=== PATIENT | female | born 1980 | race Caucasian/White ===

== ENCOUNTER 2016-05-15 10:18 | Inpatient (IN) | payer OTHER ==
[2016-05-14 15:55] VITALS: Ht 165.1 cm; Wt 113.0 kg
[~2016-05-15] VITALS: Ht 165.1 cm; Wt 113.0 kg
[2016-05-15] VITALS (34 sets, daily range): BP systolic 98–150; BP diastolic 45–78; PULSE 70–96; RESP 13–32
[~2016-05-15 10:18] MED LIST: CEFAZOLIN 1 GM INJ ONE; CIPR500T4 PO; CYCL-319 PO; HYDR-3498 PO; HYDR-906 PO; LOSARTAN 100 MG PO; MAG-19 PO; OMEP20CA9 PO; ONDA4TAB35 PO
[2016-05-15] MEDS ORDERED: HYDROCO/APAP PO (11:13)
[2016-05-15 11:39] LABS: ADD UMIC YES; URINE BILIRUBIN (Dip) NEGATIVE (NEGATIVE); URINE BLOOD (Dip) NEGATIVE (NEGATIVE); URINE COLOR LT. YELLOW (YELLOW); URINE GLUCOSE (Dip) NEGATIVE (NEGATIVE); URINE KETONES (Dip) NEGATIVE (NEGATIVE); URINE LEUKOCYTE ESTERASE (Dip) 1+ (NEGATIVE); URINE NITRITE (Dip) NEGATIVE (NEGATIVE); URINE TOTAL PROTEIN (Dip) NEGATIVE (NEGATIVE); URINE UROBILINOGEN (Dip) 0.2 E.U./dL (0.1-1.0)
[2016-05-15 12:11] LABS: BACTERIA,URINE FEW; URINE RBCS NONE SEEN /HPF (0)
[2016-05-15] MEDS ORDERED: MIDAZOLAM 1 MG/ML 2 ML INJ ONE (12:20)
[2016-05-15] MEDS ORDERED: FENTAnyl 50 MCG/ML VIAL ONE (12:20)
[2016-05-15] MEDS ORDERED: SUCCINYLCHOLINE CHLORIDE 100 MG/5 ML SYG IV ONE (12:20)
[2016-05-15] MEDS ORDERED: LIDOCAINE 2% (SDV) 5 ML INJ ONE (12:20)
[2016-05-15] MEDS ORDERED: PROPOFOL 20 ML ONE ×2 (12:20→14:32)
[2016-05-15] MEDS ORDERED: THROMBIN 5000 UNIT VIAL ONE ×2 (12:23→13:03)
[2016-05-15] MEDS ORDERED: GELATIN SIZE 100 SPONGE ONE (12:23)
[2016-05-15] MEDS ORDERED: OCULAR LUBRICANT 3.5 GM OPH OINT ONE (12:23)
[2016-05-15] MEDS ORDERED: POLYMYXIN/BACITRACIN 1L IRRIG ONE (12:23)
[2016-05-15] MEDS ORDERED: LIDOCAINE 0.5%/EPI (MDV) 50 ML INJ ONE (12:23)
--- NOTE | 2016-05-15 13:05 | HPN ---
Date/Time of Note Date/Time of Note DATE: 05/15/16 TIME: 13:05 Interval H&P Admission Note Pt. seen H&P reviewed: No system changes OREN NELSON PA-C May 15, 2016 13:05
[2016-05-15] MEDS ORDERED: morphine 2 MG INJ IV PRN ×2 (13:30→16:30)
[2016-05-15] MEDS ORDERED: ONDANSETRON 4 MG INJ IV PRN ×2 (13:30→14:30)
[2016-05-15] MEDS ORDERED: HYDROCODONE/APAP (10/325) TAB PO PRN ×3 (13:30→21:50)
[2016-05-15] MEDS ORDERED: PHENYLephrine (100 MCG/ML) 5ML SYG ONE (13:36)
[2016-05-15] MEDS: CEFAZOLIN 1 GM/50 ML (PMX) 50 ML IVPB SCH ×2 (13:40→22:34)
[2016-05-15] MEDS ORDERED: DEXAMETHASONE 4 MG/ML 1 ML INJ ONE (13:47)
[2016-05-15] MEDS ORDERED: METOCLOPRAMIDE 10 MG INJ ONE (13:47)
[2016-05-15] MEDS ORDERED: ROCURONIUM 50 MG INJ ONE (13:49)
[2016-05-15] MEDS ORDERED: LABETALOL HCL 20MG INJ ONE (13:54)
[2016-05-15] MEDS ORDERED: HYDROmorphONE 2 MG/ML SYG ONE (13:55)
[2016-05-15] MEDS ORDERED: GELATIN SIZE 100 SPONGE TOP ONE (13:56)
[2016-05-15] MEDS ORDERED: EPHEDrine SULFATE 50 MG/5 ML SYG ONE (14:11)
[2016-05-15] MEDS ORDERED: METOCLOPRAMIDE 10 MG INJ IV PRN (14:30)
[2016-05-15] MEDS ORDERED: HYDROmorphONE (0.2 MG/ML) 10ML SYG IV PRN ×3 (14:30→17:00)
[2016-05-15] MEDS ORDERED: DIPHENHYDRAMINE 50 MG INJ IV PRN (14:30)
[2016-05-15] MEDS ORDERED: hydrALAzine 20 MG INJ IV PRN (14:30)
[2016-05-15] MEDS ORDERED: PROCHLORPERAZINE 10 MG INJ IV PRN (14:30)
[2016-05-15] MEDS ORDERED: MEPERIDINE 25 MG INJ IV PRN (14:30)
[2016-05-15] MEDS ORDERED: EPHEDrine SULFATE 50 MG/5 ML SYG IV PRN (14:30)
[2016-05-15] MEDS ORDERED: OXYCODONE/ACETAMINOPHEN (5/325) TAB PO PRN ×2 (14:30)
[2016-05-15] MEDS ORDERED: LABETALOL HCL 20MG INJ IV PRN (14:30)
[2016-05-15] MEDS ORDERED: ONDANSETRON 4 MG INJ ONE (14:49)
[2016-05-15] MEDS ORDERED: GLYCOPYRROLATE 1 MG INJ ONE (14:55)
[2016-05-15] MEDS ORDERED: NEOSTIGMINE 3 MG/3 ML SYRINGE ONE (14:55)
[2016-05-15] MEDS: FENTAnyl 50 MCG/ML VIAL IV PRN ×5 (15:41→16:14)
[2016-05-15] MEDS: HYDROmorphONE (0.2 MG/ML) 10ML SYG IV PRN ×5 (15:42→16:14)
--- NOTE | 2016-05-15 15:53 | RADRPT ---
PROCEDURE: X-ray fluoroscopy guidance CLINICAL INDICATION: Pain TECHNIQUE: Fluoroscopic guidance was utilized for lumbar laminectomy. COMPARISON: None available FINDINGS: Fluoroscopic guidance was provided. 6.2 seconds of fluoroscopy time was utilized for the procedure. Two images were obtained during the procedure in progress. IMPRESSION: 1. X-ray fluoroscopic guidance, as above. RPTAT: QQ .Johan Pelletier MD, MD Date Time Electronically viewed and signed by .Johan Pelletier MD, MD on 05/15/2016 15:53 .R/
[2016-05-15] MEDS ORDERED: HYDROmorphONE 0.2 MG/ML PCA ONE (16:40)
[2016-05-15] MEDS ORDERED: HYDROmorphONE 0.2 MG/ML PCA IV SCH ×2 (17:00→22:00)
--- NOTE | 2016-05-15 18:29 | HP ---
DATE OF ADMISSION: 05/15/2016 CHIEF COMPLAINT: Lower back and radicular pain. HISTORY OF PRESENT ILLNESS: The patient is a 35-year-old female with history of chronic lower back and radicular pain. The patient was seen by Dr. Ervin as an outpatient. The patient has history of multilevel disk herniation in her lumber spine, most notably at L5 to S1. The patient's MRI done in 01/2016 showed small left-sided disk herniation at T12 to L1, small central disk herniation at L 1 to L2, small central disk herniation at L4 to L5 and large left-sided disk herniation at L5 to S1. The patient failed conservative treatment and was brought in to hospital today and underwent lumba r laminectomy at L4 to S1. The patient also underwent microdiskectomy. The patient does have posto perative pain, but is able to move the lower extremities. No reported chest pain, shortness of sandra th. No recent fever or chills. No recent fall. The patient states that she used to use a cane int ermittently prior to admission. The patient reported that she has a history of hypertension and was taking losartan for hypertension and [place] for pain control. The patient denied any abdominal pain . REVIEW OF SYSTEMS: Rest of review of systems was unremarkable. PAST MEDICAL HISTORY: Significant for recent fracture left great toe with osteomyelitis and retaine d foreign body, status post left foot incision and drainage of great toe with biopsy of the bone. T he patient reported that she has taken 6 weeks of antibiotics. PAST SURGICAL HISTORY: As stated above, the patient is status post left great toe incision and drai nage and also status post left wrist surgery, details not available. SOCIAL HISTORY: No smoking, no alcohol. FAMILY HISTORY: Noncontributory. ALLERGIES: NONE. PHYSICAL EXAMINATION: GENERAL: The patient is conscious, awake, alert, fairly oriented. VITAL SIGNS: Temperature 98.1, pulse 78, respirations 15, blood pressure 116/61, O2 saturation 96% on 2 liters. HEENT: Conjunctivae and lids are normal. Oropharynx clear. NECK: Supple. No mass, no thyromegaly. LUNGS: Clear to auscultation. CARDIOVASCULAR: S1, S2 normal. No murmur. ABDOMEN: Soft, nondistended, nontender. Bowel sounds present. EXTREMITIES: No leg edema. NEUROLOGIC: The patient is awake, alert, fairly oriented, with no gross motor deficit. Detailed ex amination was deferred due to recent surgery. LABORATORY DATA: Sodium 141, potassium 4.1, BUN 9, creatinine 0.5. Liver enzymes normal. WBC 7.6, hemoglobin 13.7, platelets 329. Urine negative. Coagulation profile normal. EKG: Norm al sinus rhythm with no acute ST changes. Chest x-ray clear. IMPRESSION: 1. Chronic lower back pain and lumbar radiculopathy. 2. Hypertension. PLAN: The patient will be admitted on the medical floor. The patient has been started on IV fluid and will be continued on IV cefazolin as per protocol. The patient will be started on IV morphine f or pain control and also will be started on Percocet. The patient's antihypertensive medication tyler l be withheld as the last blood pressure was in high 90s and low 100s. The patient will have SCDs f or DVT prophylaxis. We will do followup labs. Further recommendations will depend on patient's hos pital course. Meanwhile, we will continue symptomatic treatment. Dictated By: SAI VEGA/ANGELINA Conf#: [id number] DID#: [id number]
[2016-05-15] MEDS: SOD CHLORIDE 0.45% 1,000 ML IV SCH (20:39)
[2016-05-15] MEDS: HYDROCODONE/APAP (10/325) TAB PO PRN (22:30)
[2016-05-16] VITALS: BP 105/55; RESP 18
[2016-05-16 05:01] LABS: ADD SCAN DIFF NO
[2016-05-16 05:17] LABS: POTASSIUM 4.4 mmol/L (3.5-5.1)
[2016-05-16 05:19] LABS: BASOPHILS % 0.2 % (0.0-2.0); HEMATOCRIT 34.9 % (37.0-47.0); HEMOGLOBIN 11.4 g/dl (12.0-16.0); LYMPHOCYTES # 1.9 10^3/ul (0.8-2.9); MEAN CORPUSCULAR HGB CONC 32.7 g/dl (32.0-37.0); MEAN CORPUSCULAR VOLUME 82.5 fl (82.0-101.0); MEAN PLATELET VOLUME 10.1 fl (7.4-10.4); MONOCYTE # 1.1 10^3/ul (0.3-0.9); MONOCYTES % 7.6 % (0.0-11.0); NEUTROPHIL # 11.6 10^3/ul (1.6-7.5); NEUTROPHILS % 78.7 % (39.0-77.0); PLATELET COUNT 293 10^3/UL (140-415); RED BLOOD COUNT 4.23 10^6/ul (4.20-5.40); RED CELL DISTRIBUTION WIDTH 13.6 % (11.5-14.5); WHITE BLOOD COUNT 14.8 10^3/ul (4.8-10.8)
[2016-05-16 05:20] LABS: CALCIUM 8.3 mg/dl (8.4-10.2); CREATININE 0.59 mg/dl (0.44-1.00)
[2016-05-16] MEDS: CEFAZOLIN 1 GM/50 ML (PMX) 50 ML IVPB SCH ×2 (06:14→13:45)
[2016-05-16] MEDS: SOD CHLORIDE 0.45% 1,000 ML IV SCH ×2 (06:50→08:33)
--- NOTE | 2016-05-16 07:00 | PREOPHP ---
DATE OF ADMISSION: 05/15/2016 HISTORY OF PRESENT ILLNESS: The patient is approximately 35 years of age, a female who was original ly seen in the office for evaluation of low back pain with pain radiating down to the lower extremit y and weakness in her left foot. The patient was diagnosed with lumbar 4, lumbar 5 disk herniation and lumbar 5-S1 large left-sided disk herniation. Conservative management was offered to the patien t. The patient has had epidural injections in the lumbar spine without much relief. Has had physic al therapy without much relief and she has failed pain management. Her condition is getting worse. Pain is increasing. She wants something more definitive to be done. Surgical intervention was dis cussed with the patient. The patient has agreed to entertain this option. PAST MEDICAL HISTORY: Per chart. SURGICAL HISTORY: Per chart. SOCIAL HISTORY: Denies use of drugs, alcohol, tobacco. ALLERGIES: PER CHART. MEDICATIONS: Taking at home, per chart. FAMILY HISTORY: Unremarkable. REVIEW OF SYSTEMS: Additional 10-point review of systems conducted. Pertinent positives stated in HPI, otherwise negative. PHYSICAL EXAMINATION: GENERAL: The patient is awake, alert and oriented, follows commands properly. EXTREMITIES: The upper extremity examination is unremarkable. She has equal strength in both her u pper extremities shoulders, biceps, triceps, wrist extensors and flexors. Sensation is intact throughout. Lower extremity examination: Positive leg raise on the left side, 4/5 muscle strength on the left leg compared to 5/5 muscle strength on the right leg. She is able to move the right le g freely as well as hip, knee and ankle, has good strength throughout without any sensory loss. On the left side, patient has difficulty with range of motion. IMAGING: MRI dated 2016 showed small central disk herniation L1-L2, with small disk herniatio n L4-L5 and a large left side disk herniation L5-S1. RECOMMENDATIONS: Unfortunately, patient has failed conservative management, has failed outpatient management. The pa rory's condition is getting worse. At this point, the only option left is for surgical decompressi on in the form of right L4-L5 and left L5-S1 laminotomy with foraminotomy and possible diskectomy. The procedure was described to the patient in great detail. All questions were answered. Complicat ions of surgery were reviewed with the patient including bleeding, infection, permanent neurological damage, , stroke and heart attack. The patient has agreed and has had preop performed, has be en cleared for surgical intervention. Will be admitted to [facility] surger y for further care and management. The patient was seen and examined, discussed with Dr. Ervin. Dictated By: OREN DAVIS for JUANCARLOS WHATLEY/ANGELINA Conf#: [id number] DID#: [id number]
[2016-05-16 08:28] VITALS: BP 108/59; RESP 18
[2016-05-16] MEDS: HYDROCODONE/APAP (10/325) TAB PO PRN ×4 (08:34→23:39)
--- NOTE | 2016-05-16 11:46 | PN ---
Date/Time of Note Date/Time of Note DATE: 05/16/16 TIME: 11:43 Assessment/Plan VTE Prophylaxis VTE Prophylaxis Intervention: SCD's Lines/Catheters IV Catheter Type (from Nrsg): Peripheral IV Urinary Cath still in place: Yes Reason Cath still needed: urinary retention Assessment/Plan Assessment/Plan 1. Chronic lower back pain and lumbar radiculopathy. S/p right l3-4,left l5-s1 laminotomy/foraminotomy by Dr Gibbs. Continue MAGAZINE WRITER Dilaudid and Lutts for pain. Continue PT. 2. Hypertension. BP is stable. Hydralazine PRN. 3. Obesity. Weight loss advised. D/W RN. Plan of care d/w Dr Franco. Subjective 24 Hr Interval Summary Free Text/Dictation Patient with significant back pain, pain is better controlled with MAGAZINE WRITER Dilaudid and Lutts, was able to ambulate, tolerates diet well, no N/V. Exam/Review of Systems Vital Signs Vitals Vital Signs Date Time Temp Pulse Resp B/P Pulse Ox O2 Delivery O2 Flow Rate FiO2 05/16/16 08:28 98.9 75 18 108/59 97 05/15/16 22:00 Nasal Cannula 2.0 Intake and Output 05/15/16 05/15/16 05/16/16 14:59 22:59 06:59 Intake Total 1300 ml 1420 ml Output Total 145 ml 1500 ml Balance 1155 ml -80 ml Exam Constitutional: alert, oriented Psych: no complaints Head: normocephalic Eyes: nl conjunctiva ENMT: nl external ears & nose Neck: non-tender, supple Respiratory: clear to auscultation, normal air movement Cardiovascular: nl pulses, regular rate and rhythm Gastrointestinal: soft Musculoskeletal: other (s/p back surgery with D,c,i dressing) Extremities: normal pulses Neurological: BEHAVIORAL ANALYST II-XII intact Skin: nl turgor Results Result Diagram: 05/16/16 04305/16/16 0430 Results 24 hrs Laboratory Tests Test 05/16/16 04:30 Anion Gap 15 Basophils # 0.0 Basophils % 0.2 Blood Urea Nitrogen 7 Calcium Level 8.3 L Carbon Dioxide Level 22 Chloride Level 105 Creatinine 0.59 Eosinophils # 0.0 Eosinophils % 0.0 Glucose Level 125 Hematocrit 34.9 L Hemoglobin 11.4 L Lymphocytes # 1.9 Lymphocytes % 13.0 L Mean Corpuscular Hemoglobin 27.0 L Mean Corpuscular Hemoglobin Concent 32.7 Mean Corpuscular Volume 82.5 Mean Platelet Volume 10.1 Monocytes # 1.1 H Monocytes % 7.6 Neutrophils # 11.6 H Neutrophils % 78.7 H Nucleated Red Blood Cells # 0.0 Nucleated Red Blood Cells % 0.0 Platelet Count 293 Potassium Level 4.4 Red Blood Count 4.23 Red Cell Distribution Width 13.6 Sodium Level 138 White Blood Count 14.8 #H Medications Medications Current Medications Cefazolin Sodium (Ancef 1 Gm/50 ml (Pmx)) 50 ml @ 100 mls/hr Q8 IVPB Last administered on 05/16/16 06:14; Admin Dose 100 MLS/HR; Start 05/15/16 at 14:00; Stop 05/16/16 at 14:00 Morphine Sulfate (morphine) 1 mg Q2H PRN IV mod to severe pain; Start 05/15/16 at 13:30; Status Future Hold Ondansetron HCl (Zofran Inj) 4 mg Q4H PRN IV NAUSEA AND/OR VOMITING; Start 05/15 at 13:30; Status Future Hold Morphine Sulfate 2 mg 2 mg Q4H PRN IV SEVERE PAIN LEVEL 7-10; Start 05/15/16 at 16:30 Sodium Chloride (1/2 NS) 1,000 ml @ 75 mls/hr [id number] IV Last administered on 05/16/16 08:33; Admin Dose 75 MLS/HR; Start 05/15/16 at 17:30 Acetaminophen/ Hydrocodone Bitart ([place] (10/325)) 2 tab Q4H PRN PO PAIN Last administered on 05/16/16 08:34; Admin Dose 2 TAB; Start 05/15/16 at 21:45 Acetaminophen/ Hydrocodone Bitart ([place] (10/325)) 1 tab Q4H PRN PO PAIN; Start 05/15/16 at 21:50 Hydromorphone HCl (Dilaudid MAGAZINE WRITER) 0.2 MG DOSE 10 ... Q4PCA IV Last administered on 05/16/16 00:15; Admin Dose 6 MG; Start 05/15/16 at 22:00 Influenza Virus Vaccine (Fluzone) 0.5 ml ONCE ONCE IM* ; Start 05/17/16 at 09:00 ; Stop 05/17/16 at 09:01 WOLF KINGSTON May 16, 2016 11:46
--- NOTE | 2016-05-16 15:07 | CONS ---
Date/Time of Note Date/Time of Note DATE: 05/16/16 TIME: 15:05 Assessment/Plan Assessment/Plan Additional Assessment/Plan seen/examined awake/alert/follows commands/sensation intact right l3-4,left l5-s1 laminotomy/foraminotomy wound looks good pt doing better cont pt/ot may go home gloria Consultation Date/Type/Reason Admit Date/Time May 15, 2016 at 10:18 Initial Consult Date Exam/Review of Systems Vital Signs Vitals Vital Signs Date Time Temp Pulse Resp B/P Pulse Ox O2 Delivery O2 Flow Rate FiO2 05/16/16 08:28 98.9 75 18 108/59 97 05/15/16 22:00 Nasal Cannula 2.0 Intake and Output 05/15/16 05/15/16 05/16/16 15:00 23:00 07:00 Intake Total 1300 ml 1420 ml Output Total 145 ml 1500 ml Balance 1155 ml -80 ml Results Result Diagram: 05/16/16 0430 05/16/16 0430 Results 24 hrs Laboratory Tests Test 05/16/16 04:30 Anion Gap 15 Basophils # 0.0 Basophils % 0.2 Blood Urea Nitrogen 7 Calcium Level 8.3 L Carbon Dioxide Level 22 Chloride Level 105 Creatinine 0.59 Eosinophils # 0.0 Eosinophils % 0.0 Glucose Level 125 Hematocrit 34.9 L Hemoglobin 11.4 L Lymphocytes # 1.9 Lymphocytes % 13.0 L Mean Corpuscular Hemoglobin 27.0 L Mean Corpuscular Hemoglobin Concent 32.7 Mean Corpuscular Volume 82.5 Mean Platelet Volume 10.1 Monocytes # 1.1 H Monocytes % 7.6 Neutrophils # 11.6 H Neutrophils % 78.7 H Nucleated Red Blood Cells # 0.0 Nucleated Red Blood Cells % 0.0 Platelet Count 293 Potassium Level 4.4 Red Blood Count 4.23 Red Cell Distribution Width 13.6 Sodium Level 138 White Blood Count 14.8 #H Medications Medications Current Medications Morphine Sulfate (morphine) 1 mg Q2H PRN IV mod to severe pain; Start 05/15/16 at 13:30; Status Future Hold Ondansetron HCl (Zofran Inj) 4 mg Q4H PRN IV NAUSEA AND/OR VOMITING; Start 05/15 at 13:30; Status Future Hold Morphine Sulfate 2 mg 2 mg Q4H PRN IV SEVERE PAIN LEVEL 7-10; Start 05/15/16 at 16:30 Sodium Chloride (1/2 NS) 1,000 ml @ 75 mls/hr [id number] IV Last administered on 05/16/16 08:33; Admin Dose 75 MLS/HR; Start 05/15/16 at 17:30 Acetaminophen/ Hydrocodone Bitart ([place] (10/325)) 2 tab Q4H PRN PO PAIN Last administered on 05/16/16 13:45; Admin Dose 2 TAB; Start 05/15/16 at 21:45 Acetaminophen/ Hydrocodone Bitart ([place] (10/325)) 1 tab Q4H PRN PO PAIN; Start 05/15/16 at 21:50 Hydromorphone HCl (Dilaudid CNC MACHINE SETTER) 0.2 MG DOSE 10 ... Q4PCA IV Last administered on 05/16/16 00:15; Admin Dose 6 MG; Start 05/15/16 at 22:00 Influenza Virus Vaccine (Fluzone) 0.5 ml ONCE ONCE IM* ; Start 05/17/16 at 09:00 ; Stop 05/17/16 at 09:01 OREN NELSON PA-C May 16, 2016 15:07
[2016-05-16 19:00] VITALS: BP 107/57; RESP 18
[2016-05-17 05:31] LABS: ADD SCAN DIFF NO; BASOPHIL # 0.1 10^3/ul (0.0-0.1); BASOPHILS % 0.4 % (0.0-2.0); EOSINOPHILS # 0.1 10^3/ul (0.0-0.5); EOSINOPHILS % 0.5 % (0.0-7.0); HEMOGLOBIN 11.1 g/dl (12.0-16.0); LYMPHOCYTES # 4.5 10^3/ul (0.8-2.9); LYMPHOCYTES % 33.3 % (15.0-51.0); MEAN CORPUSCULAR HEMOGLOBIN 27.3 pg (29.0-33.0); MEAN CORPUSCULAR HGB CONC 32.6 g/dl (32.0-37.0); MEAN CORPUSCULAR VOLUME 83.5 fl (82.0-101.0); MEAN PLATELET VOLUME 10.3 fl (7.4-10.4); MONOCYTE # 1.2 10^3/ul (0.3-0.9); MONOCYTES % 8.6 % (0.0-11.0); NEUTROPHIL # 7.6 10^3/ul (1.6-7.5); NEUTROPHILS % 56.7 % (39.0-77.0); PLATELET COUNT 253 10^3/UL (140-415); RED BLOOD COUNT 4.07 10^6/ul (4.20-5.40); RED CELL DISTRIBUTION WIDTH 14.4 % (11.5-14.5); WHITE BLOOD COUNT 13.4 10^3/ul (4.8-10.8)
[2016-05-17] MEDS: HYDROCODONE/APAP (10/325) TAB PO PRN (05:50)
[2016-05-17 06:03] LABS: POTASSIUM 3.9 mmol/L (3.5-5.1)
[2016-05-17 06:07] LABS: CALCIUM 7.9 mg/dl (8.4-10.2)
[2016-05-17 06:16] LABS: CREATININE 0.55 mg/dl (0.44-1.00)
[2016-05-17 07:34] VITALS: BP 146/85; RESP 17
[2016-05-17] MEDS ORDERED: INFLUENZA VIRUS VACCINE 0.5 ML (DISPENSING) IM* ONE (09:00)
--- NOTE | 2016-05-17 14:08 | DS ---
Date/Time of Note Date/Time of Note DATE: 05/17/16 TIME: 14:08 Discharge Summary Admission/Discharge Info Admit Date/Time May 15, 2016 at 10:18 Discharge Date/Time Patient Condition: Stable Home Meds Reported Medications [Hydroco/Apap] No Conflict Check, 1 TAB PO QID Y for PAIN, #40 05/15/16 [Lozartan 100 Mg] No Conflict Check, 50 MG PO DAILY 02/26/13 Discontinued Scripts Magaldrate/Simethicone* (Mylanta*) 355 Ml Susp, 30 ML PO QID Y for GASTROINTESTINAL UPSET, #1 BOTTLE Prov:SUKHDEV HOLLIDAY NP 10/28/15 Omeprazole* (Prilosec*) 20 Mg Capsule.dr, 20 MG PO DAILY, #30 CAP Prov:SUKHDEV HOLLIDAY NP 10/28/15 Ondansetron Hcl* (Zofran* ODT) 4 mg -ODT Tab.disper, 4 MG PO Q8 Y for NAUSEA AND /OR VOMITING, #30 TAB Prov:SUKHDEV HOLLIDAY NP 10/28/15 Ciprofloxacin Hcl* (Ciprofloxacin Hcl*) 500 Mg Tablet, 500 MG PO BID for 10 Days , TAB Prov:SUKHDEV HOLLIDAY NP 10/28/15 Hydrocodone Bit-Acetaminophen* ([place]*) 5-325 Mg Tab, 1 TAB PO Q6 Y for PAIN, # 20 TAB Prov:SUKHDEV HOLLIDAY NP 10/28/15 Cyclobenzaprine Hcl* (Cyclobenzaprine Hcl*) 10 Mg Tablet, 10 MG PO TID, #15 TAB Prov:MICAH RIVAS I. LGSW 04/17/15 Hydrocodone Bit-Acetaminophen ([place]) 5-325 Mg Tablet, 1 TAB PO Q4H Y for PAIN for 14 Days, TAB Prov:MICAH RIVAS I. LGSW 04/17/15 Hydrocodone Bit-Acetaminophen* ([place]*) 5-325 Mg Tab, 1 TAB PO Q6 Y for PAIN, # 20 TAB Prov:ALEKSEY OLIVAREZ 11/26/14 Pending Labs Laboratory Tests Test 05/17/16 04:30 Anion Gap 13 (8-16) Basophils # 0.110^3/ul (0.0-0.1) Basophils % 0.4% (0.0-2.0) Blood Urea Nitrogen 8mg/dl (7-20) Calcium Level 7.9mg/dl (8.4-10.2) Carbon Dioxide Level 24mmol/L (21-31) Chloride Level 107mmol/L (97-110) Creatinine 0.55mg/dl (0.44-1.00) Eosinophils # 0.110^3/ul (0.0-0.5) Eosinophils % 0.5% (0.0-7.0) Glucose Level 86mg/dl (70-220) Hematocrit 34.0% (37.0-47.0) Hemoglobin 11.1g/dl (12.0-16.0) Lymphocytes # 4.510^3/ul (0.8-2.9) Lymphocytes % 33.3% (15.0-51.0) Mean Corpuscular Hemoglobin 27.3pg (29.0-33.0) Mean Corpuscular Hemoglobin Concent 32.6g/dl (32.0-37.0) Mean Corpuscular Volume 83.5fl (82.0-101.0) Mean Platelet Volume 10.3fl (7.4-10.4) Monocytes # 1.210^3/ul (0.3-0.9) Monocytes % 8.6% (0.0-11.0) Neutrophils # 7.610^3/ul (1.6-7.5) Neutrophils % 56.7% (39.0-77.0) Nucleated Red Blood Cells # 0.010^3/ul (0.0-0.0) Nucleated Red Blood Cells % 0.0/100WBC (0.0-0.0) Platelet Count 00566^3/UL (140-415) Potassium Level 3.9mmol/L (3.5-5.1) Red Blood Count 4.0710^6/ul (4.20-5.40) Red Cell Distribution Width 14.4% (11.5-14.5) Sodium Level 140mmol/L (135-144) White Blood Count 13.410^3/ul (4.8-10.8) NICOL CARTWRIGHT May 17, 2016 14:08
--- NOTE | 2016-05-20 21:53 | OPR ---
DATE OF OPERATION: 05/15/2016 PREOPERATIVE DIAGNOSIS: Left-sided L4-L5 neural foraminal stenosis and right-sided L5-S1 neural for aminal stenosis, possible disk herniation. POSTOPERATIVE DIAGNOSIS: Left-sided L4-L5 neural foraminal stenosis and right-sided L5-S1 neural fo raminal stenosis, possible disk herniation. PROCEDURE: 1. Left-sided L4-L5 laminotomy, foraminotomy, medial facetectomy with microdiskectomy, CPT 54652. 3. Right-sided L5-S1 laminotomy, foraminotomy, medial facetectomy with microdiskectomy, CPT 77679. SURGEON FOR THE OPERATION: Juancarlos Ervin MD LINUX NETWORK ENGINEER: SUSAN Roblero COMPLICATIONS OF OPERATION: None. ANESTHESIA: General endotracheal. STIMATED BLOOD LOSS: Less than 200 COUNTS: Needle counts, sponge counts were correct. SPECIMENS: Multiple fragments of disk and also lamina and also facet joints were sent to pathology. INDICATIONS FOR OPERATION: Please refer to my consultation and admission H and P. The patient is a pproximately 35, has been complaining of low back pain, leg pain, radiation of pain to bilateral low er extremities. The patient has a right-sided L5-S1 on left-sided L4-L5 disk bulge. Will proceed w ith lumbar laminotomy, foraminotomy, medial facetectomy and microdiskectomy. Risks and benefits of the operation including anesthesia, infection, bleeding, permanent neurological injury and wer e explained. The patient agreed to proceed with operation and signed the consent. PROCEDURE IN DETAIL: The patient was placed on operating table. Once adequate general endotracheal anesthesia was obtained, the patient was turned prone on vertical bolsters. The lumbar region was shaved, prepped and draped in normal sterile fashion. Midline incision was made after an x-ray conf irmed our position. At the right side, the L4-L5 laminotomy and at left side L5-S1 laminotomy were performed under operative microscope magnification. On the right side, the nerve root of L4-L5 was completely skeletonized and followed distally into neural foramen. On the left side, the nerve root of L5-S1 was completely skeletonized, distally followed into neural foramen. There were disk bulge s at each level, and they were minimal and they were subligamentous disk. Microdiskectomy was done with just removal of the extra portion that was compressing the nerve root, but the significant prob marky was the facet hypertrophy and the severe lateral recess stenosis that was causing neural foramin al stenosis and radiculopathy. This was addressed with laminotomy. Spinal monitoring showed improv ement of signal. The area was irrigated with bacitracin/saline solution. The closure of the wound was done with #1 Vicryl for lumbodorsal fascia after washed and irrigated with bacitracin/saline josé ution. The subcutaneous tissue and dermis were closed with 2-0 and 3-0 Vicryl with Steri-Strips. T he wound was closed shut. The patient tolerated the procedure well, was taken to postanesthesia rec overy in stable condition, following commands, moving all muscle groups of the upper and lower extre mities. Dictated By: JUANCARLOS WOOD/ANGELINA Conf#: [id number] DID#: [id number]
== END 2016-05-17 13:45 | disposition home or self-care (01) | DRG 520 ==
LOC: REC 10:18 → MS1 19:05
PROVIDERS: ADMIT Neurological Surgery; ATTEND Neurological Surgery
PROC: 0SB20ZZ Excision of Lumbar Vertebral Disc, Open Approach (ICD-10-PCS; 2016-05-15)
PROC: 0SB40ZZ Excision of Lumbosacral Disc, Open Approach (ICD-10-PCS; 2016-05-15)
PROC: 01NB0ZZ Release Lumbar Nerve, Open Approach (ICD-10-PCS; principal; 2016-05-15 12:30)
DX: M48.06 Spinal stenosis, lumbar region (principal); I10 Essential (primary) hypertension; M54.16 Radiculopathy, lumbar region; M54.17 Radiculopathy, lumbosacral region; M51.86 Other intervertebral disc disorders, lumbar region; M51.87 Other intervertebral disc disorders, lumbosacral region
CPT/HCPCS: 72100; 80048; 81001; 81003; 84703; 85025; 86850; 86900; 86901; 87086; 90686; 97116; 97162; 97166; 97530; J0330; J0690; J1100; J1170; J2175; J2250; J2370; J2405; J2710; J2765; J3010

== ENCOUNTER 2016-06-06 23:21 | Emergency (ER) | payer OTHER ==
[~2016-06-06] VITALS: Ht 165.1 cm; Wt 113.2 kg
[~2016-06-06 23:21] MED LIST changes: -CEFAZOLIN 1 GM INJ ONE; -CIPR500T4 PO; -CYCL-319 PO; -HYDR-3498 PO; -HYDR-906 PO; +HYDROCO/APAP PO; -MAG-19 PO; -OMEP20CA9 PO; -ONDA4TAB35 PO
[2016-06-06 23:46] VITALS: Ht 165.1 cm; Wt 113.2 kg
--- NOTE | 2016-06-07 01:27 | ERA ---
ER Documentation Chief Complaint Date/Time DATE: 06/07/16 TIME: 01:26 Chief Complaint back pain HPI The patient is a 35-year-old female, presenting with back pain, worsening with cough. She has history of chronic back pain for more than 3 years, had back surgery about 3 weeks ago. She however does not take any pain medication for the last 3 days. She complains of cough today, a coughing spell made her back pain worse. She denies fever, chills, neck pain, chest pain, dyspnea, abdominal pain. He vomited some mucus, denies diarrhea, constipation, dysuria, polyuria. She does not smoke or drink, denies history of IV drug abuse Past medical history: Hypertension, polycystic ovarian syndrome Past surgical history: Back, left wrist ROS All systems reviewed and are negative except as per history of present illness. Medications Home Meds Active Scripts Hydrocodone/Acetaminophen ([place] 5-325 Tablet) 1 Each Tablet, 1 EACH PO Q6H, # 10 TAB Prov:HOLLY TREJO MD 06/07/16 Promethazine HCl/Codeine (Prometh-Codein 6.25-10 mg/5 ml) 5 Ml Syrup, 10 ML PO Q6, #120 Prov:HOLLY TREJO MD 06/07/16 Ondansetron (Ondansetron Odt) 4 Mg Tab.rapdis, 4 MG PO Q6H Y for NAUSEA AND/OR VOMITING, #10 TAB Prov:HOLLY TREJO MD 06/07/16 Hydrocodone/Acetaminophen ([place] 10-325 Tablet) 1 Each Tablet, 1 TAB PO Q6H Y for PAIN, #7 TAB Prov:HOLLY TREJO MD 06/07/16 Reported Medications [Hydroco/Apap] 10/325 No Conflict Check, 1 TAB PO QID Y for PAIN, #40 05/15/16 [Lozartan 100 Mg] No Conflict Check, 50 MG PO DAILY 02/26/13 Allergies Allergies: Coded Allergies: No Known Allergy (Unverified , 05/15/16) PMhx/Soc History of Surgery: Yes (RT WRIST SURGERY,LT BIG TOE SURGERY) Anesthesia Reaction: No Hx Neurological Disorder: No Hx Respiratory Disorders: No Hx Cardiac Disorders: Yes (HTN) Hx Psychiatric Problems: No Hx Miscellaneous Medical Probl: Yes (independent with gait and ADL's) Hx Alcohol Use: No Hx Substance Use: No Hx Tobacco Use: No Physical Exam Vitals Vital Signs Date Time Temp Pulse Resp B/P Pulse Ox O2 Delivery O2 Flow Rate FiO2 06/06/16 23:46 99.5 117 24 139/90 97 Physical Exam Const: No acute distress. Head: Atraumatic. Eyes: Normal Conjunctiva. ENT: Normal External Ears, Nose and Mouth. Neck: Full range of motion. No meningismus. Resp: Clear to auscultation bilaterally. Cardio: Regular rate and rhythm, no murmurs. Abd: Soft, non distended, normal bowel sounds, non tender. Skin: No petechiae or rashes. Back: No midline or flank tenderness. The back incision is healing well , not warm to touch, no crepitus Ext: No cyanosis, or edema. Neur: Awake and alert. No focal deficit Psych: Normal Mood and Affect. Result Diagram: 06/07/16 0146 06/07/16 0146 Results 24 hrs Laboratory Tests Test 06/07/16 01:46 06/07/16 02:17 Alanine Aminotransferase (ALT/SGPT) 25IU/L Albumin 4.4g/dl Albumin/Globulin Ratio 1.29 Alkaline Phosphatase 99IU/L Anion Gap 21 Aspartate Amino Transf (AST/SGOT) 19IU/L Basophils # 0.110^3/ul Basophils % 0.8% Blood Urea Nitrogen 7mg/dl Calcium Level 9.5mg/dl Carbon Dioxide Level 24mmol/L Chloride Level 108mmol/L Creatinine 0.58mg/dl Direct Bilirubin 0.00mg/dl Eosinophils # 0.110^3/ul Eosinophils % 1.1% Globulin 3.40g/dl Glucose Level 126mg/dl Hematocrit 42.0% Hemoglobin 13.9g/dl Indirect Bilirubin 0.0mg/dl Lipase 109U/L Lymphocytes # 3.710^3/ul Lymphocytes % 34.6% Mean Corpuscular Hemoglobin 27.3pg Mean Corpuscular Hemoglobin Concent 33.1g/dl Mean Corpuscular Volume 82.4fl Mean Platelet Volume 10.2fl Monocytes # 0.810^3/ul Monocytes % 7.5% Neutrophils # 6.010^3/ul Neutrophils % 55.6% Nucleated Red Blood Cells # 0.010^3/ul Nucleated Red Blood Cells % 0.0/100WBC Platelet Count 78980^3/UL Potassium Level 3.6mmol/L Red Blood Count 5.1010^6/ul Red Cell Distribution Width 13.5% Sodium Level 149mmol/L Total Bilirubin 0.0mg/dl Total Protein 7.8g/dl White Blood Count 10.810^3/ul Bedside Urine Blood Negative Bedside Urine Glucose (UA) Negative Bedside Urine Ketones (LAB) Negative Bedside Urine Leukocyte Esterase (L Trace Bedside Urine Nitrite (LAB) Negative Bedside Urine Protein (LAB) Negative Bedside Urine pH (LAB) 6.0 Current Medications Medications (Trade) Dose Ordered Sig/Ruddy Route PRN Reason Start Time Stop Time Status Last Admin Dose Admin Morphine Sulfate (morphine) 4 mg ONCE STAT IV 06/07/16 01:33 06/07/16 01:35 DC 06/07/16 01:44 Ondansetron HCl (Zofran Inj) 4 mg ONCE STAT IV 06/07/16 01:33 06/07/16 01:35 DC 06/07/16 01:44 Ondansetron HCl (Zofran Inj) 4 mg ONCE STAT IV 06/07/16 03:28 06/07/16 03:29 DC 06/07/16 03:30 Procedures/[place] [id number] Radiology Main Line: [phone] DIAGNOSTIC IMAGING REPORT Patient: BETINA ADAME : 1980 Age: 35 Sex: F MR #: [id number] DOS: 06/07/16 0133 Ordering MD: HOLLY TREJO MD Location: E/R Room/Bed: PROCEDURE: CT L-Spine. CLINICAL INDICATION: pain TECHNIQUE: Section spiral CT images through the lumbar spine without contrast. Multiplanar reconstructions. .The CTDIvol is 38.49 mGy and the DLP is 1011.04 mGycm. One or more of the following dose reduction techniques were used: automated exposure control, adjustment of the mA and/or kV according to patient size, or use of iterative reconstruction technique. COMPARISON: MRI from [address] the abdomen pelvis from 10/28/2015 FINDINGS: There is minimal retrolisthesis from L1-2 through L3-4. Alignment otherwise anatomic. No fracture is seen. There are mild degenerative changes of the lumbar spine. CT is less sensitive than MRI for disk pathology but findings are not definitely change compared with prior MRI. Posterior osteophytes and ligamentous calcification at T12-L1 and L1-2 is again seen and contributes to slight canal narrowing. Ligamentous calcification is also present posteriorly. Slight bilateral foraminal narrowing. At L4-5 and L5-S1, again seen are posterior osteophytes with small associated disk bulges. Large cyst exophytic off the right kidney is again seen. Partially imaged is a probable 3.2 cm left ovarian cyst. Colonic diverticulosis. IMPRESSION: Probable stable degenerative changes. No definite acute abnormality. Follow- up MRI could be obtained for more detailed evaluation of disk pathology if desired. RPTAT: HLBE Chasity Munoz, Physician Date Time Electronically viewed and signed by Chasity Munoz Physician on 06/07/2016 03 :40 LE/ CC: HOLLY TREJO MD [place] [id number] Radiology Main Line: [phone] DIAGNOSTIC IMAGING REPORT Patient: BETINA ADAME : 1980 Age: 35 Sex: F MR #: [id number] DOS: 06/07/16 0133 Ordering MD: HOLLY TREJO MD Location: E/R Room/Bed: PROCEDURE: XR Chest. CLINICAL INDICATION: Abdominal pain. TECHNIQUE: Single frontal view of the chest was obtained COMPARISON: None FINDINGS: Portable technique and patient body habitus accentuate the cardiac silhouette and lung markings. Heart size is upper limits of normal. Lungs are clear. There is no pleural effusion or pneumothorax. IMPRESSION: Mild cardiomegaly and pulmonary vascular congestion. RPTAT: UU R Stecher, Physician Date Time Electronically viewed and signed by Leonardo Hernandez Physician on 06/07/2016 02:43 RS/ CC: HOLLY TREJO MD MEDICAL MAKING DECISION: The patient is a 35-year-old female, presenting with acute postoperative pain, cough. She was treated with morphine 4 mg IV for pain, Zofran 4 mg IV 2 for nausea with good response. The differential diagnoses considered include but are not limited to cellulitis, abscess, discitis, musculoskeletal pain, osteomyelitis Departure Diagnosis: Primary Impression: Postoperative pain Additional Impression: Cough Condition: Good Comments She was discharged with Clyo, Zofran, Phenergan with codeine I discussed the findings with the patient. I advised the patient to follow-up with the primary physician in about 1-2 days, sooner if needed and return if any concern. HOLLY TREJO MD Jun 07, 2016 01:27
[2016-06-07] MEDS ORDERED: ONDANSETRON 4 MG INJ IV STA ×2 (01:33→03:28)
[2016-06-07] MEDS ORDERED: morphine 4 MG/ML VIAL IV STA (01:33)
[2016-06-07 02:16] LABS: URINE BLOOD (Dip) POC Negative (NEGATIVE)
[2016-06-07 02:42] LABS: ADD SCAN DIFF NO
--- NOTE | 2016-06-07 02:43 | RADRPT ---
PROCEDURE: XR Chest. CLINICAL INDICATION: Abdominal pain. TECHNIQUE: Single frontal view of the chest was obtained COMPARISON: None FINDINGS: Portable technique and patient body habitus accentuate the cardiac silhouette and lung markings. He art size is upper limits of normal. Lungs are clear. There is no pleural effusion or pneumothorax. IMPRESSION: Mild cardiomegaly and pulmonary vascular congestion. RPTAT: UU Physician Luna Date Time Electronically viewed and signed by Leonardo Hernandez Physician on 06/07/2016 02:43 RS/
[2016-06-07 02:47] LABS: BASOPHIL # 0.1 10^3/ul (0.0-0.1); BASOPHILS % 0.8 % (0.0-2.0); EOSINOPHILS # 0.1 10^3/ul (0.0-0.5); EOSINOPHILS % 1.1 % (0.0-7.0); HEMOGLOBIN 13.9 g/dl (12.0-16.0); LYMPHOCYTES # 3.7 10^3/ul (0.8-2.9); LYMPHOCYTES % 34.6 % (15.0-51.0); MEAN CORPUSCULAR HEMOGLOBIN 27.3 pg (29.0-33.0); MEAN CORPUSCULAR HGB CONC 33.1 g/dl (32.0-37.0); MEAN CORPUSCULAR VOLUME 82.4 fl (82.0-101.0); MEAN PLATELET VOLUME 10.2 fl (7.4-10.4); MONOCYTE # 0.8 10^3/ul (0.3-0.9); MONOCYTES % 7.5 % (0.0-11.0); NEUTROPHILS % 55.6 % (39.0-77.0); PLATELET COUNT 370 10^3/UL (140-415); RED CELL DISTRIBUTION WIDTH 13.5 % (11.5-14.5); WHITE BLOOD COUNT 10.8 10^3/ul (4.8-10.8)
[2016-06-07 02:56] LABS: ALBUMIN 4.4 g/dl (3.3-4.9)
[2016-06-07 02:57] LABS: POTASSIUM 3.6 mmol/L (3.5-5.1)
[2016-06-07 02:59] LABS: CREATININE 0.58 mg/dl (0.44-1.00)
[2016-06-07 03:00] LABS: ALBUMIN/GLOBULIN RATIO 1.29; CALCIUM 9.5 mg/dl (8.4-10.2); TOTAL PROTEIN 7.8 g/dl (6.1-8.1)
--- NOTE | 2016-06-07 03:40 | RADRPT ---
PROCEDURE: CT L-Spine. CLINICAL INDICATION: pain TECHNIQUE: Section spiral CT images through the lumbar spine without contrast. Multiplanar recons tructions. .The CTDIvol is 38.49 mGy and the DLP is 1011.04 mGycm. One or more of the following do se reduction techniques were used: automated exposure control, adjustment of the mA and/or kV accord ing to patient size, or use of iterative reconstruction technique. COMPARISON: MRI from [address] the abdomen pelvis from 10/28/2015 FINDINGS: There is minimal retrolisthesis from L1-2 through L3-4. Alignment otherwise anatomic. No fracture is seen. There are mild degenerative changes of the lumbar spine. CT is less sensitive than MRI fo r disk pathology but findings are not definitely change compared with prior MRI. Posterior osteophy arturo and ligamentous calcification at T12-L1 and L1-2 is again seen and contributes to slight canal n arrowing. Ligamentous calcification is also present posteriorly. Slight bilateral foraminal narrow ing. At L4-5 and L5-S1, again seen are posterior osteophytes with small associated disk bulges. Large cyst exophytic off the right kidney is again seen. Partially imaged is a probable 3.2 cm left ovarian cyst. Colonic diverticulosis. IMPRESSION: Probable stable degenerative changes. No definite acute abnormality. Follow-up MRI could be obtain ed for more detailed evaluation of disk pathology if desired. RPTAT: HLBE Physician Elayne Date Time Electronically viewed and signed by Physician Elayne on 06/07/2016 03:40 LE/
[2016-06-07] MEDS ORDERED: HYDR-902 PO (04:23)
[2016-06-07] MEDS ORDERED: ONDA4TAB14 PO (04:23)
[2016-06-07] MEDS ORDERED: PROM5SYR2 PO (04:24)
[2016-06-07] MEDS ORDERED: HYDR-906 PO (04:25)
[2016-06-07 04:43] VITALS: BP 124/63; PULSE 81; RESP 18
== END 2016-06-07 04:45 | disposition home or self-care (01) ==
LOC: E/R 23:21
DX: G89.18 Other acute postprocedural pain (principal); R05 Cough; I10 Essential (primary) hypertension; R11.10 Vomiting, unspecified
CPT/HCPCS: 36415; 71010; 72131; 80053; 81003; 83690; 85025; 96374; 96375; 96376; J2270; J2405; Z7502

== ENCOUNTER 2016-07-29 19:33 | Emergency (ER) | payer MEDICARE, OTHER ==
[~2016-07-29] VITALS: Ht 165.1 cm; Wt 116.3 kg
[~2016-07-29 19:33] MED LIST changes: +HYDR-902 PO; +HYDR-906 PO; +ONDA4TAB14 PO; +PROM5SYR2 PO
[2016-07-29 19:43] VITALS: Ht 165.1 cm; Wt 116.3 kg
[2016-07-29] MEDS ORDERED: LOSA50TA6 PO (21:53)
[2016-07-29] MEDS ORDERED: ASPIRIN 325 MG TAB PO STA (22:01)
[2016-07-29 22:20] LABS: URINE BLOOD (Dip) POC Negative (NEGATIVE)
[2016-07-29 22:42] LABS: ADD SCAN DIFF NO
[2016-07-29 22:49] LABS: BASOPHIL # 0.1 10^3/ul (0.0-0.1); BASOPHILS % 0.6 % (0.0-2.0); EOSINOPHILS # 0.1 10^3/ul (0.0-0.5); EOSINOPHILS % 1.2 % (0.0-7.0); HEMATOCRIT 43.9 % (37.0-47.0); HEMOGLOBIN 14.2 g/dl (12.0-16.0); LYMPHOCYTES # 4.5 10^3/ul (0.8-2.9); LYMPHOCYTES % 40.5 % (15.0-51.0); MEAN CORPUSCULAR HEMOGLOBIN 26.7 pg (29.0-33.0); MEAN CORPUSCULAR HGB CONC 32.3 g/dl (32.0-37.0); MEAN CORPUSCULAR VOLUME 82.5 fl (82.0-101.0); MEAN PLATELET VOLUME 10.1 fl (7.4-10.4); MONOCYTE # 0.8 10^3/ul (0.3-0.9); MONOCYTES % 7.3 % (0.0-11.0); NEUTROPHIL # 5.6 10^3/ul (1.6-7.5); NEUTROPHILS % 49.9 % (39.0-77.0); PLATELET COUNT 324 10^3/UL (140-415); RED BLOOD COUNT 5.32 10^6/ul (4.20-5.40); RED CELL DISTRIBUTION WIDTH 14.2 % (11.5-14.5); WHITE BLOOD COUNT 11.2 10^3/ul (4.8-10.8)
--- NOTE | 2016-07-29 23:01 | RADRPT ---
PROCEDURE: XR Chest. CLINICAL INDICATION: Chest pain. TECHNIQUE: Single frontal chest x-ray. COMPARISON: Chest radiograph 06/07/2016. FINDINGS: The cardiac silhouette remains mildly enlarged. Minimal pulmonary vascular congestion is noted. No pneumothorax, pleural effusion or consolidation is seen. No acute osseous abnormality is noted. IMPRESSION: 1. Similar mild cardiomegaly and pulmonary vascular congestion. RPTAT: HFN .Yin Castillo MD, MD Date Time Electronically viewed and signed by .Yin Castillo MD, on 07/29/2016 23:01 .N/
[2016-07-29 23:05] LABS: INR 0.9; PROTIME 12.1 Sec (12.2-14.2); PT RATIO 0.9
[2016-07-29 23:06] LABS: PARTIAL THROMBOPLASTIN TIME 27.2 Sec (25.0-35.0)
[2016-07-29 23:08] LABS: ANION GAP 13 (8-16); BLOOD UREA NITROGEN 8 mg/dl (7-20); CALCIUM 9.3 mg/dl (8.4-10.2); CARBON DIOXIDE 24 mmol/L (21-31); CHLORIDE 107 mmol/L (97-110); GLUCOSE 135 mg/dl (70-220); POTASSIUM 3.9 mmol/L (3.5-5.1); SODIUM 140 mmol/L (135-144)
[2016-07-29 23:41] LABS: TROPONIN-I < 0.012 ng/ml (0.00-0.12)
[2016-07-30] MEDS ORDERED: LIDOCAINE/MYLANTA 40 ML BTL PO ONE
--- NOTE | 2016-07-30 01:00 | ERD ---
ER Documentation Chief Complaint Date/Time DATE: 07/30/16 TIME: 00:59 Chief Complaint intermittent chest pain x 3 days, worst today HPI Pain for 3 days. It is worse today. No nausea no vomiting no fevers no chills. Chest pain is mild to moderate intensity worse with movement worse with deep breaths but not reproducible to touch. Patient is here for similar symptoms 3 weeks ago with a fairly negative workup including chest CT. ROS All systems reviewed and are negative except as per history of present illness. Medications Home Meds Reported Medications Losartan Potassium* (Losartan Potassium*) 50 Mg Tablet, 50 MG PO DAILY, TAB 07/29/16 Discontinued Reported Medications [Hydroco/Apap] 10 No Conflict Check, 1 TAB PO QID Y for PAIN, #40 05/15/16 [Lozartan 100 Mg] No Conflict Check, 50 MG PO DAILY 02/26/13 Discontinued Scripts Hydrocodone/Acetaminophen ([place] 5-325 Tablet) 1 Each Tablet, 1 EACH PO Q6H, # 10 TAB Prov:HOLLY TREJO MD 06/07/16 Promethazine HCl/Codeine (Prometh-Codein 6.25-10 mg/5 ml) 5 Ml Syrup, 10 ML PO Q6, #120 Prov:HOLLY TREJO MD 06/07/16 Ondansetron (Ondansetron Odt) 4 Mg Tab.rapdis, 4 MG PO Q6H Y for NAUSEA AND/OR VOMITING, #10 TAB Prov:HOLLY TREJO MD 06/07/16 Hydrocodone/Acetaminophen ([place] 10-325 Tablet) 1 Each Tablet, 1 TAB PO Q6H Y for PAIN, #7 TAB Prov:HOLLY TREJO MD 06/07/16 Allergies Allergies: Coded Allergies: No Known Allergy (Unverified , 07/29/16) PMhx/Soc History of Surgery: Yes (left wrist, lumbar fusion, ) Anesthesia Reaction: No Hx Neurological Disorder: No Hx Respiratory Disorders: No Hx Cardiac Disorders: Yes (htn) Hx Psychiatric Problems: No Hx Miscellaneous Medical Probl: Yes (pcos, cyst on liver) Hx Alcohol Use: Yes (rare) Hx Substance Use: No Hx Tobacco Use: No Smoking Status: Former smoker Physical Exam Vitals Vital Signs Date Time Temp Pulse Resp B/P Pulse Ox O2 Delivery O2 Flow Rate FiO2 07/30/16 00:19 75 20 130/76 98 Room Air 07/29/16 19:43 98.3 93 20 116/91 98 Physical Exam Const: [] Head: Atraumatic Eyes: Normal Conjunctiva ENT: Normal External Ears, Nose and Mouth. Neck: Full range of motion..~ No meningismus. Resp: Clear to auscultation bilaterally Cardio: Regular rate and rhythm, no murmurs Abd: Soft, non tender, non distended. Normal bowel sounds Skin: No petechiae or rashes Back: No midline or flank tenderness Ext: No cyanosis, or edema Neur: Awake and alert Psych: Normal Mood and Affect Result Diagram: 07/29/16222607/29/162226 Results 24 hrs Laboratory Tests Test 07/29/16 22:20 07/29/16 22:27 Bedside Urine pH (LAB) 6.5 Bedside Urine Protein (LAB) Negative Bedside Urine Glucose (UA) Negative Bedside Urine Ketones (LAB) Negative Bedside Urine Blood Negative Bedside Urine Nitrite (LAB) Negative Bedside Urine Leukocyte Esterase (L Negative White Blood Count 11.210^3/ul Red Blood Count 5.3210^6/ul Hemoglobin 14.2g/dl Hematocrit 43.9% Mean Corpuscular Volume 82.5fl Mean Corpuscular Hemoglobin 26.7pg Mean Corpuscular Hemoglobin Concent 32.3g/dl Red Cell Distribution Width 14.2% Platelet Count 82593^3/UL Mean Platelet Volume 10.1fl Neutrophils % 49.9% Lymphocytes % 40.5% Monocytes % 7.3% Eosinophils % 1.2% Basophils % 0.6% Nucleated Red Blood Cells % 0.0/100WBC Neutrophils # 5.610^3/ul Lymphocytes # 4.510^3/ul Monocytes # 0.810^3/ul Eosinophils # 0.110^3/ul Basophils # 0.110^3/ul Nucleated Red Blood Cells # 0.010^3/ul Prothrombin Time 12.1Sec Prothrombin Time Ratio 0.9 INR International Normalized Ratio 0.90 Activated Partial Thromboplast Time 27.2Sec Sodium Level 140mmol/L Potassium Level 3.9mmol/L Chloride Level 107mmol/L Carbon Dioxide Level 24mmol/L Anion Gap 13 Blood Urea Nitrogen 8mg/dl Creatinine 0.60mg/dl Glucose Level 135mg/dl Calcium Level 9.3mg/dl Troponin I < 0.012ng/ml Current Medications Medications (Trade) Dose Ordered Sig/Ruddy Route PRN Reason Start Time Stop Time Status Last Admin Dose Admin Aspirin (Aspirin) 325 mg ONCE STAT PO 07/29/16 22:01 07/29/16 22:08 DC 07/29/16 22:37 Miscellaneous Medication (Gi Cocktail (2)) 40 ml ONCE ONCE PO 07/30/16 00:00 07/30/16 00:01 DC 07/30/16 00:00 Procedures/MDM EKG: Rate/Rhythm: [Normal Sinus Rhythm] QRS, ST, T-waves: [No changes consistent w/ acute ischemia] Impression: [No evidence of ischemia or arrhythmia] Chest X-ray 1V Interpreted by me: Soft Tissue: No acute abnormalities Bones: No acute abnormalities Mediastinum/Cardiac Silhouette/Lungs: [No acute abnormalities] Patient's thoracic symptoms have stabilized while in the department and are stable for outpatient follow up. Exam and work up not consistent w/ ischemia, arrhythmia, PE or dissection. Departure Diagnosis: Primary Impression: Chest pain Chest pain type: unspecified Qualified Code: R07.9 - Chest pain, unspecified type Condition: Stable JENNI WHITTAKER Jul 30, 2016 01:00
[2016-07-30 01:20] VITALS: BP 135/77; PULSE 82; RESP 16
== END 2016-07-30 02:15 | disposition home or self-care (01) ==
LOC: E/R 19:33
DX: R07.9 Chest pain, unspecified (principal); I10 Essential (primary) hypertension; Z87.891 Personal history of nicotine dependence
CPT/HCPCS: 71010; 80048; 81003; 84484; 85025; 85610; 85730; 93005

== ENCOUNTER 2017-09-03 21:41 | Emergency (ER) | END 2017-09-04 00:38 | disposition home or self-care (01) ==

== ENCOUNTER 2018-02-11 13:45 | Emergency (ER) | END 2018-02-11 17:41 | disposition home or self-care (01) ==

== ENCOUNTER 2018-04-04 13:25 | Emergency (ER) | payer MEDICARE, OTHER ==
[~2018-04-04] VITALS: Wt 109.6 kg
[~2018-04-04 13:25] MED LIST changes: +CYCL10TA7 PO; -HYDR-902 PO; -HYDR-906 PO; -HYDROCO/APAP PO; +LOSA50TA7 PO; -LOSARTAN 100 MG PO; +NAPR-985 PO; -ONDA4TAB14 PO; +OXYC-279 PO; +PRED20TA PO; -PROM5SYR2 PO; +TRAM50TA2 PO
[2018-04-04 13:29] VITALS: RESP 19
--- NOTE | 2018-04-04 14:15 | ERD ---
ER Documentation Chief Complaint Chief Complaint bib self, cc: left arm pain s/p fall 10 min prior to arrival, HPI 37-year-old female, right-handed, presents to the emergency department, co mplaining of left shoulder pain after a ground-level fall that occurred approximately 20 minutes prior to arrival. The patient tripped and fell landing on the left side of her body, currently the pain is located in the shoulder, 7/10, constant, dull. No treatment attempted at this time. The patient denies loss of consciousness, no blurred vision, no distal weakness, numbness or tingling. ROS All systems reviewed and are negative except as per history of present illness. Medications Home Meds Active Scripts Acetaminophen* (Tylenol*) 325 Mg Tablet, 2 TAB PO Q8 PRN for PAIN AND OR ELEVATED TEMP, #20 TAB Prov:GEOFFREY CARSON MD 04/04/18 Ibuprofen* (Motrin*) 400 Mg Tab, 400 MG PO Q8, #12 TAB Prov:GEOFFREY CARSON MD 04/04/18 Tramadol HCl (Tramadol HCl) 50 Mg Tablet, 50 MG PO Q6 PRN for PAIN, #12 TAB Prov:MICHAEL ROBERTS PA-C 02/11/18 Naproxen* (Naprosyn*) 500 Mg Tablet, 500 MG PO BID PRN for PAIN AND/OR INFLAMMATION, #30 TAB Prov:MICHAEL ROBERTS PA-C 02/11/18 Cyclobenzaprine Hcl* (Cyclobenzaprine Hcl*) 10 Mg Tablet, 10 MG PO QHS, #7 TAB Prov:MICHAEL ROBERTS PA-C 02/11/18 Prednisone* (Prednisone*) 20 Mg Tab, 40 MG PO DAILY for 4 Days, TAB Prov:MICHAEL ROBERTS PA-C 02/11/18 Oxycodone HCl/Acetaminophen (Percocet 5-325 mg Tablet) 1 Each Tablet, 1 EACH PO Q6, #15 TAB Prov:ALEKSEY OLIVAREZ 09/04/17 Reported Medications Losartan Potassium* (Losartan Potassium*) 50 Mg Tablet, 50 MG PO DAILY, TAB 07/29/16 Allergies Allergies: Coded Allergies: No Known Allergy (Unverified , 04/04/18) PMhx/Soc Anesthesia Reaction: No Hx Neurological Disorder: No Hx Respiratory Disorders: No Hx Cardiac Disorders: Yes (hypertension) Hx Psychiatric Problems: No Hx Miscellaneous Medical Probl: Yes (pcos, cyst on liver, DIVERTICULOSIS) Hx Alcohol Use: No Hx Substance Use: No Hx Tobacco Use: No Physical Exam Vitals Vital Signs Date Temp Pulse Resp B/P (MAP) Pulse Ox O2 O2 Flow FiO2 Time Delivery Rate 04/04/18 72 146/88 16:02 (107) 04/04/18 98.2 98 19 164/82 100 13:29 (109) Physical Exam Const: No acute distress Head: Atraumatic Eyes: Normal Conjunctiva ENT: Normal External Ears, Nose and Mouth. Neck: Full range of motion. No meningismus. Resp: Clear to auscultation bilaterally Cardio: Regular rate and rhythm, no murmurs Abd: Soft, non tender, non distended. Normal bowel sounds Skin: No petechiae or rashes Back: No midline or flank tenderness Ext: No cyanosis, or edema. Left shoulder: Normal inspection, tenderness over AC joint, decreased range of motion due to pain. Distal neurovascular exam intact. Neur: Awake and alert Psych: Normal Mood and Affect Results 24 hrs Current Medications Medications Dose Sig/Ruddy Start Time Status Last (Trade) Ordered Route PRN Stop Time Admin Dose Reason Admin Ibuprofen 400 mg ONCE ONCE 04/04/18 DC 04/04/18 (Motrin) PO 14:30 14:41 04/04/18 14:31 1 tab ONCE ONCE 04/04/18 DC 04/04/18 Acetaminophen PO 14:30 14:40 / 04/04/18 Hydrocodone 14:31 Bitart ([place] ([id number])) Patient: BETINA ADAME : 1980 Age: 37 Sex: F MR #: [id number] DOS: 04/04/18 1412 Ordering MD: GEOFFREY CARSON MD Location: FTE Room/Bed: PROCEDURE: XR left Shoulder and Humerus. CLINICAL INDICATION: Pain post fall TECHNIQUE: 3 views of the left shoulder and 2 views of the left humerus COMPARISON: None available FINDINGS: Shoulder: There is no acute fracture or dislocation. The glenohumeral and acromioclavicular joints are intact. There is mild joint space narrowing and osseous spurring of the acromioclavicular joint. There is mild osseous spurring along the inferior aspect of the glenoid. The soft tissues around the left shoulder are unremarkable. There is no acute fracture of the visualized left ribs. The visualized left lung is clear. Humerus: There is no acute fracture of the visualized humerus. The soft tissues around the arm are unremarkable. There is mild joint space narrowing and osseous spurring of the ulnohumeral joint. RPTAT: ZZ IMPRESSION: 1. No acute bony abnormality. 2. Mild osteoarthrosis of the acromioclavicular joint. 3. Small osseous spur along the inferior glenoid. 4. Mild osteoarthrosis of the ulnohumeral joint. .Marleen Tabares MD, Date Time Electronically viewed and signed by .Marleen Tabares MD, MD on 04/04/2018 15:26 .T/ CC: GEOFFREY CARSON MD Procedures/MDM Acute right shoulder pain: no red flags. Differential diagnosis include but not limited to: Shoulder contusion, rotator cuff injury, tendon/ligament injury, arthritis; low suspicion for fracture, dislocation, septic arthritis. Neurovascular exam grossly intact. no clinical findings suggestive of acute infectious process, no acute deformity, no edema, no rashes. Physical examination and clinical presentation consistent most likely with shoulder contusion. During the ED course the patient received treatment with po meds presenting overall improvement of the symptoms. Results and clinical impression discussed with the patient who agrees with management. The patient is stable to be treated outpatient and will be discharged home with recommendations for ice, rest and partial immobilization. NSAIDs 3 times daily for 5 days and close monitoring. The patient was instructed to follow up with the primary care provider in the next 48h. If symptoms persist, worsen or new symptoms develop, then patient should return to the ED immediately. Instructions explained and given to patient with acknowledgment and demonstrated understanding. Disclaimer: Inadvertent spelling and grammatical errors are likely due to EHR/dictation software use and do not reflect on the overall quality of patient care. Also, please note that the electronic time recorded on this note does not necessarily reflect the actual time of the patient encounter. Departure Diagnosis: Primary Impression: Contusion of shoulder, left Additional Impression: Fall from slip, trip, or stumble Condition: Stable Additional Instructions: Thank you very much for allowing us to participate in your care. Your health and safety is our top priority at [facility]. Call your primary care doctor TOMORROW for an appointment during the next 2-4 days and bring all the information and medications prescribed. Have prescriptions filled and follow precisely the directions on the label. If the symptoms get worse and your provider is unavailable, return to the Emergency Department immediately. GEOFFREY CARSON MD Apr 04, 2018 14:15
[2018-04-04] MEDS ORDERED: IBUPROFEN 200 MG TAB PO ONE (14:30)
[2018-04-04] MEDS ORDERED: HYDROCODONE/APAP (5/325) TAB PO ONE (14:30)
[2018-04-04] MEDS ORDERED: ACET325T33 PO (15:37)
[2018-04-04] MEDS ORDERED: IBUP-1561 PO (15:37)
[2018-04-04 16:02] VITALS: BP 146/88; PULSE 72
== END 2018-04-04 16:02 | disposition home or self-care (01) ==
LOC: FTE 13:25
DX: S40.012A Contusion of left shoulder, initial encounter (principal); I10 Essential (primary) hypertension; W01.0XXA Fall on same level from slipping, tripping and stumbling without subsequent striking against object, initial encounter; Y92.9 Unspecified place or not applicable
CPT/HCPCS: 73030; 73060; 99283